=== PATIENT | female | born 1950 | race Caucasian/White ===

== ENCOUNTER 2017-10-22 08:02 | Day surgery (SDC) | payer MEDICARE, BC ==
[~2017-10-22 08:02] MED LIST: Lactated Ringers 1,000 ML IV SCH
[2017-10-22] MEDS ORDERED: fentaNYL 100 MCG/2 ML SDV ONE (09:29)
[2017-10-22] MEDS ORDERED: Propofol 200 MG/20 ML SDV ONE (09:29)
[2017-10-22 11:03] VITALS: BP 130/88
--- NOTE | 2017-10-23 09:36 | OR ---
PREOPERATIVE DIAGNOSIS: History of autoimmune hepatitis. POSTOPERATIVE DIAGNOSIS: History of autoimmune hepatitis. PROCEDURE PERFORMED: Esophagogastroduodenoscopy. INDICATIONS: The patient is a 67-year-old female, who presents for EGD. PROCEDURE IN DETAIL: This was done in the procedure room and sedation was given per Anesthesia. The scope was introduced into the pharynx across the esophagus into the stomach, across the pylorus into the first and second portion of duodenum. The first and second portions of duodenum were normal. Scope was slowly withdrawn and retroflexed. Body of the stomach was normal. GE junction was normal. Scope was slowly withdrawn looking all mucosal surfaces on the way out. Again, no issues with esophagus either. FINAL DIAGNOSIS: Normal upper endoscopy. BKD: 10/22/2017 10:23:07 MODL: 10/22/2017 14:42:59 /[id number]
== END 2017-10-22 11:30 | disposition home or self-care (01) ==
LOC: VM.SDS 08:02
PROVIDERS: ATTEND Surgery
DX: Z86.2 Personal history of diseases of the blood and blood-forming organs and certain disorders involving the immune mechanism (principal); J44.9 Chronic obstructive pulmonary disease, unspecified; Z88.1 Allergy status to other antibiotic agents; Z88.8 Allergy status to other drugs, medicaments and biological substances; Z79.899 Other long term (current) drug therapy
CPT/HCPCS: 00731; J2704; J3010; J7120

== ENCOUNTER 2018-12-08 10:18 | Emergency (ER) | payer MEDICARE, BC ==
[2018-12-08 10:32] VITALS: BP 136/90
[2018-12-08] MEDS ORDERED: cefTRIAXone 1 GM Vial IM ONE (10:40)
--- NOTE | 2018-12-08 10:43 | EDM.PDOC ---
ED HPI GENERAL MEDICAL PROBLEM - General Chief Complaint: Respiratory Problem Stated Complaint: COUGHING UP PHLEM,TIRED Time Seen by Provider: 12/08/18 10:21 Source of Information: Reports: Patient, Old Records, RN, RN Notes Reviewed History Limitations: Reports: No Limitations - History of Present Illness INITIAL COMMENTS - FREE TEXT/NARRATIVE: Patient presents to the ED at [facility] for the evaluation of a productive cough, fever, chills, and feeling tired. Patient states her symptoms originally started with a sore throat 3 days ago. The sore throat has resolved but the productive cough, fever, and chills is progressively getting worse. She is trying to stay well hydrated. No close family member or contacts with similar symptoms. Patient denies any eye or ear problems. No rhinitis or sinus pressure/ pain. She has not tried any OTC medications. She states she is susceptible to infections due to history of autoimmune disorders. Otherwise, no other concerns today. Onset Date: 12/05/18 - Related Data Allergies Allergy/AdvReac Type Severity Reaction Status Date / Time bacitracin Allergy Other Verified 12/08/18 10:33 lidocaine Allergy Swelling Verified 12/08/18 10:33 neomycin Allergy Other Verified 12/08/18 10:33 polymyxin B Allergy Other Verified 12/08/18 10:33 Home Meds: Home Meds Albuterol Sulfate 3 ml INH Q8H PRN 10/17/17 [History] Cetirizine [ZyrTEC] 10 mg PO DAILY 10/17/17 [History] Cyanocobalamin (Vitamin B-12) [Vitamin B-12] 1,000 mcg IM Q30D 10/17/17 [History ] Ferrous Sulfate [Iron] 325 mg PO DAILY 10/17/17 [History] Fluticasone/Salmeterol [Advair HFA 115-21 MCG] 2 puff INH BID 10/17/17 [History] Langford-3 Fatty Acids [Langford-3] 1 cap PO DAILY 10/17/17 [History] Ubidecarenone [Co Q-10] 30 mg PO DAILY 10/17/17 [History] azaTHIOprine [Imuran] 75 mg PO DAILY 10/17/17 [History] predniSONE 5 mg PO DAILY 10/17/17 [History] Azithromycin [Zithromax] 250 mg PO DAILY 5 Days #46 tab 12/08/18 [Rx] Past Medical History Cardiovascular History: Reports: None Respiratory History: Reports: COPD Gastrointestinal History: Reports: Colon Polyp, Hepatitis Musculoskeletal History: Reports: RA Neurological History: Reports: None Psychiatric History: Reports: None Endocrine/Metabolic History: Reports: None Hematologic History: Reports: None Immunologic History: Reports: SLE, Other (See Below) Other Immunologic History: Sjogrens Oncologic (Cancer) History: Reports: Renal Dermatologic History: Reports: None - Infectious Disease History Infectious Disease History: Reports: Hepatitis A Other Infectious Disease History: hepatitis A- 1969 - Past Surgical History GI Surgical History: Reports: Colonoscopy, Other (See Below) Other GI Surgeries/Procedures: hernia repair Female Surgical History: Reports: Nephrectomy Social & Family History - Tobacco Use Smoking Status *Q: Unknown Ever Smoked - Caffeine Use Caffeine Use: Reports: Coffee ED ROS GENERAL - Review of Systems Review Of Systems: See Below Constitutional: Reports: Fever, Chills, Fatigue HEENT: Denies: Ear Pain, Eye Discharge, Rhinitis, Sinus Problem, Throat Pain Respiratory: Reports: Cough, Sputum. Denies: Shortness of Breath Cardiovascular: Denies: Chest Pain, Palpitations Skin: Reports: No Symptoms Neurological: Reports: No Symptoms ED EXAM, GENERAL - Physical Exam Exam: See Below Exam Limited By: No Limitations General Appearance: Alert, No Apparent Distress Eye Exam: Bilateral Eye: Normal Inspection, PERRL Ears: Normal External Exam, Normal Canal, Normal TMs Nose: Normal Inspection Throat/Mouth: Normal Inspection, Other (mild erythema of posterior oropharnyx; no exudate) Neck: Supple Respiratory/Chest: Decreased Breath Sounds, Rhonchi, Wheezing Cardiovascular: Normal Peripheral Pulses, Regular Rate, Rhythm Neurological: Alert, Oriented Skin Exam: Warm, Dry, Intact, Normal Color Course - Vital Signs Last Recorded V/S: Last Vital Signs Temp 37.8 C 12/08/18 10:23 Pulse 105 H 12/08/18 10:23 Resp 18 12/08/18 10:23 BP 136/90 12/08/18 10:23 Pulse Ox 94 L 12/08/18 10:23 Departure - Departure Time of Disposition: 10:47 Disposition: Home, Self-Care 01 Condition: Good Clinical Impression: CAP (community acquired pneumonia) Qualifiers: Laterality: unspecified laterality Qualified Code(s): J18.9 - Pneumonia, unspecified organism - Discharge Information *PRESCRIPTION DRUG MONITORING PROGRAM REVIEWED*: Not Applicable *COPY OF PRESCRIPTION DRUG MONITORING REPORT IN PATIENT NILES: Not Applicable Prescriptions: Azithromycin [Zithromax] 250 mg PO DAILY 5 Days #46 tab Instructions: Community-Acquired Pneumonia, Adult Referrals: Jeanine Cowart DO [Primary Care Provider] - Additional Instructions: 1. Stay well hydrated and rest 2. Start Zithromax tomorrow 3. Continue Prednisone 4. See Dr. Cowart later this week for a follow up - Problem List Review Problem List Initiated/Reviewed/Updated: Yes - Assessment/Plan Assessment:: CAP Plan: Given assessment findings, fevers, chills, and fatigue, will start patient on Zithromax per guidelines for CAP. 1 gram IM Rocephin given in ER. Patient is already on Prednisone at home, will continue same dose. SE discussed. Needs to stay well hydrated. Talked about cough and deep breathing exercises. Avoid any second hand smoke or other environmental inhalation irritants. Would like patient to follow up in clinic later this week for a recheck with Dr. Cowart.
== END 2018-12-08 11:20 | disposition home or self-care (01) ==
LOC: VM.ED 10:18
DX: J18.9 Pneumonia, unspecified organism (principal); J44.9 Chronic obstructive pulmonary disease, unspecified; Z88.1 Allergy status to other antibiotic agents; Z88.8 Allergy status to other drugs, medicaments and biological substances; Z79.899 Other long term (current) drug therapy
CPT/HCPCS: 96372; 99283; 99283-GF; J0696

== ENCOUNTER 2020-01-19 08:31 | Day surgery (SDC) | payer MEDICARE, BC ==
[2020-01-19] MEDS ORDERED: fentaNYL 100 MCG/2 ML SDV ONE (08:54)
[2020-01-19] MEDS ORDERED: Propofol 200 MG/20 ML SDV ONE (08:54)
[2020-01-19 10:40] VITALS: BP 128/94; PULSE 78
--- NOTE | 2020-01-20 11:31 | OR ---
PREOPERATIVE DIAGNOSIS: History of colon polyps. POSTOPERATIVE DIAGNOSIS: History of colon polyps. PROCEDURE PERFORMED: Colonoscopy. INDICATION: The patient is a 69-year-old female who presents for her 5 year repeat colonoscopy at this time. PROCEDURE IN DETAIL: This was done in the endoscopy suite. Sedation was given per Anesthesia. She was placed in left lateral position. First, a rectal exam was done, was normal. Scope was introduced into the rectum and slowly advanced through the rectum, sigmoid, descending, transverse, and ascending colon until the cecum was reached. Upon reaching the cecum, scope was slowly withdrawn looking at all mucosal surface on the way out. No mucosal abnormalities, polyps, or lesions were noted. FINAL DIAGNOSIS: Normal colonoscopy. Repeat colonoscopy in 10 years time. BKD: 01/19/2020 10:24:24 MODL: 01/19/2020 17:11:37 /[id number]
== END 2020-01-19 11:55 | disposition home or self-care (01) ==
LOC: VM.SDS 08:31
PROVIDERS: ATTEND Surgery
DX: Z12.11 Encounter for screening for malignant neoplasm of colon (principal); D70.2 Other drug-induced agranulocytosis; T45.1X5A Adverse effect of antineoplastic and immunosuppressive drugs, initial encounter; M32.9 Systemic lupus erythematosus, unspecified; J43.9 Emphysema, unspecified; F17.210 Nicotine dependence, cigarettes, uncomplicated; C64.2 Malignant neoplasm of left kidney, except renal pelvis; M06.89 Other specified rheumatoid arthritis, multiple sites; Z79.51 Long term (current) use of inhaled steroids; Z79.899 Other long term (current) drug therapy; Z88.8 Allergy status to other drugs, medicaments and biological substances; Z88.1 Allergy status to other antibiotic agents; Z86.010 Personal history of colon polyps
CPT/HCPCS: 00811; G0105; J2704; J3010; J7120

== ENCOUNTER 2022-11-06 10:16 | Day surgery (SDC) | payer MEDICARE, BC ==
[2022-11-06] MEDS ORDERED: Propofol 200 MG/20 ML SDV ONE (10:47)
[2022-11-06] MEDS ORDERED: fentaNYL 100 MCG/2 ML SDV ONE (10:47)
[2022-11-06 12:49] VITALS: BP 121/81; PULSE 87
== END 2022-11-06 13:40 | disposition home or self-care (01) ==
LOC: VM.SDS 10:16
PROVIDERS: ATTEND Surgery
DX: D12.0 Benign neoplasm of cecum (principal); K57.30 Diverticulosis of large intestine without perforation or abscess without bleeding; M81.0 Age-related osteoporosis without current pathological fracture; M06.9 Rheumatoid arthritis, unspecified; J30.9 Allergic rhinitis, unspecified; J44.9 Chronic obstructive pulmonary disease, unspecified; C64.2 Malignant neoplasm of left kidney, except renal pelvis; M32.9 Systemic lupus erythematosus, unspecified; Z79.899 Other long term (current) drug therapy; Z87.891 Personal history of nicotine dependence
CPT/HCPCS: 00811; 88305; J2704; J3010; J7120